=== PATIENT | female | born 1980 | race Caucasian/White ===

== ENCOUNTER → 2020-03-28 15:17 | Outpatient (CLI) | payer OTHER, SELFPAY ==
--- NOTE | ~2020-03-28 | MM_ITS ---
EXAMINATION: MM screening [facility] BI w guillermo HISTORY: Screening mammogram TECHNIQUE: Craniocaudal and mediolateral oblique 3-D tomosynthesis images were obtained and synthetic 2-D images were generated. CAD analysis was submitted and interpreted. COMPARISON: 12/08/2018, 12/17/2017, 12/07/2016 BREAST PARENCHYMAL COMPOSITION: The breasts are heterogeneously dense, which may obscure small masses . FINDINGS: There is no evidence of suspicious mass, calcification, or architectural distortion to sugg est malignancy in either breast. There has been no suspicious interval change. IMPRESSION: 1. No mammographic evidence of malignancy. 2. Recommend routine screening mammography in one year. BI-RADS Category 1: Negative Reviewed, dictated and finalized at location A.
== END ==
PROVIDERS: Visit Provider Nurse Practitioner
DX: Z12.31 Encounter for screening mammogram for malignant neoplasm of breast (principal)
CPT/HCPCS: 77063; 77067

== ENCOUNTER → 2021-03-20 14:20 | Outpatient (CLI) | payer BC, SELFPAY ==
--- NOTE | ~2021-03-20 | MMUS_ITS ---
EXAMINATION: MM diagnostic [facility] BI w guillermo, US breast BI complete HISTORY: Palpable left mass at 12-1:00, left breast tenderness TECHNIQUE: Bilateral full field and right spot ML, MLO and craniocaudal 3-D tomosynthesis images of t he breasts were performed and synthetic 2-D images were generated. CAD analysis was submitted and int erpreted. High resolution complete bilateral breast ultrasound including all 4 quadrants and subareol ar area was performed. COMPARISON: 03/28/2020 bilateral digital screening mammogram 12/08/2018 diagnostic bilateral mammogram and left breast ultrasound 12/17/2017 bilateral digital screening mammogram BREAST PARENCHYMAL COMPOSITION: The breasts are heterogeneously dense, which may obscure small masses . FINDINGS: MAMMOGRAPHIC FINDINGS: The dense fibroglandular stroma prevents exclusion of mass in either breast. Bilateral complete breas t ultrasound examination was performed. No architectural distortion, malignant constipation, skin thickening or retraction of either breast i s detected. ULTRASOUND: Right breast: 9:00 5 cm from nipple: 1.9 x 3.2 x 3.1 mm sonolucency without internal vascularity or posterior shado wing, likely a small cyst Left breast: 2:00 4 cm from nipple: 3.2 x 2.1 x 3.1 mm probable cyst, without internal vascularity or posterior sh adowing 2:00 8 cm from nipple: Circumscribed hypoechoic contiguous 3.4 x 1.9 and 2.4 x 1 mm hypoechoic areas without suspicious shadowing or internal vascularity, likely benign IMPRESSION: 1. No mammographic evidence of malignancy 2. Routine mammographic screening is recommended BI-RADS Category 2: Benign finding(s). Reviewed, dictated and finalized at location A. IMPRESSION: 1. No mammographic evidence of malignancy 2. Routine mammographic screening is recommended BI-RADS Category 2: Benign finding(s).
== END ==
PROVIDERS: Visit Provider Obstetrics & Gynecology Gynecology
DX: N63.20 Unspecified lump in the left breast, unspecified quadrant (principal); N64.59 Other signs and symptoms in breast
CPT/HCPCS: 76641; 77062; 77066; G0279

== ENCOUNTER → 2021-06-12 00:48 | Outpatient (CLI) | payer BC, SELFPAY ==
[2021-06-13 18:18] LABS: SARS-CoV-2 RNA PCR Negative
== END ==
PROVIDERS: PCP Family Medicine; Visit Provider Physician Assistant
DX: R05.9 Cough, unspecified (principal); Z20.822 Contact with and (suspected) exposure to COVID-19
CPT/HCPCS: C9803; U0003; U0005

== ENCOUNTER → 2022-06-07 16:08 | Outpatient (CLI) | payer OTHER, SELFPAY ==
--- NOTE | ~2022-06-07 | MM_ITS ---
EXAMINATION: MM screening [facility] BI w guillermo HISTORY: Screening mammogram TECHNIQUE: Craniocaudal and mediolateral oblique 3-D tomosynthesis images were obtained and synthetic 2-D images were generated. CAD analysis was submitted and interpreted. COMPARISON: 03/20/2021 bilateral diagnostic mammography and bilateral complete breast ultrasound exam ination BREAST PARENCHYMAL COMPOSITION: The breasts are heterogeneously dense, which may obscure small masses . FINDINGS: There is no evidence of suspicious mass, calcification, or architectural distortion to sugg est malignancy in either breast. There has been no suspicious interval change. IMPRESSION: 1. No mammographic evidence of malignancy. 2. Recommend routine screening mammography in one year. BI-RADS Category 1: Negative Reviewed, dictated and finalized at location A. ALIZER
== END ==
PROVIDERS: PCP Nurse Practitioner; Visit Provider Nurse Practitioner
DX: Z12.31 Encounter for screening mammogram for malignant neoplasm of breast (principal)
CPT/HCPCS: 77063; 77067

== ENCOUNTER 2023-01-20 12:34 | Outpatient (CLI) | payer BC, SELFPAY ==
--- NOTE | 2023-02-07 12:47 | WPDHOMESLEEP ---
Sleep Study - Home Unattended Date of Study: 01/20/23 Ordering Provider: Rachael RyanMD Interpreting Provider: Michaelle Scott, DO Home Sleep Study Type: Watch PAT Height: 1.8 m Weight: 95.254 kg Body Mass Index: 29.2 Neck Circumference (inches): 14 [place]: 0 Reason for Sleep Study Fatigue Sleep History The patient is a 42-year-old female with anxiety, hypertension, seasonal allergies and history of tobacco use that had a sleep study ordered for fatigue. The patient denies awakening at night with heartburn, belching or cough. She frequently snores and is occasionally loud enough that others complain. She constantly has trouble sleeping when she has a cold. She denies waking up gasping for air throughout the night. She denies having breathing problems at night observed by herself or others. She frequently sweats excessively at night. She frequently has heart palpitations or irregular heartbeats during the night. She denies falling asleep during the day but never while driving. She denies sleep paralysis and cataplexy. She constantly has trouble at school or work due to sleepiness. She constantly experiences vivid dreamlike scenes upon awakening or falling asleep. She occasionally feels afraid of falling asleep. She constantly has nightmares and frequently remembers her dreams. She constantly has thoughts racing through her mind. She denies feeling sad or depressed. She constantly has anxiety. She frequently has muscular tension. She constantly experiences crawling and aching feelings in her legs and occasionally has leg pain during the night. She denies grinding her teeth during sleep and denies awakening with morning jaw pain. She denies being bothered by pain during the day and denies being awakened by pain during the night. She frequently wakes up feeling stiff in the morning. She occasionally wakes up with sore or achy muscles. She frequently wakes up with pain in the neck, spine or other joints. She goes to bed at 11:00 p.m. on weekdays and between 11:00 p.m. to midnight on the weekends. It takes her 30 minutes up to 2 hours to fall asleep. She wakes up 4-5 times throughout the night for unknown reasons and can take hours for her to fall back asleep. She wakes up at 6:40 a.m. on weekdays but does not have a set wake-up time on the weekends. She is unsure how many hours of sleep she gets per night. She will stay in bed for 30 minutes up to an hour to 5 after waking up in the morning. She currently lives with her and 2 children. She denies consuming any caffeinated beverages within 2 hours of bedtime. She denies engaging in physical exercise before bedtime. She will report for falling asleep. She denies taking naps in the afternoon or the evening. She consumes 2 cups of coffee per day. She is a former cigarette smoker. She will consume alcohol on the weekends socially. She denies recreational drug use. [facility] Family History Family History Father Hypertension Social History Social History Smoking status: Never smoker Smoking end date: 05/30/06 Alcohol intake: current Alcohol use details: social Substance use: never Living arrangements: with family Occupation/Education: occupation Gender identity (if verbalized by the patient): Female Medications Home Medications Medication Instructions Recorded Confirmed Type fluoxetine 40 mg capsule 40 mg PO DAILY #30 caps 05/15/21 05/15/21 Rx methylprednisolone 4 mg tablets in See Rx Instructions PO PER PKG DIR 06/05/21 Rx a dose pack (Medrol (Freeman)) #21 ea Sleep Procedure The sleep study was completed using AdvaxisT a technically adequate device with seven channels: peripheral arterial tone, actigraphy, body position, snore, respiratory movement, pulse oximetry, sleep staging, and heart rate. Prior to using the
[2023-02-07 12:48] VITALS: BMI 29.2
== END 2023-01-21 12:55 | disposition home or self-care (01) ==
PROVIDERS: PCP Nurse Practitioner; Visit Provider Internal Medicine
DX: G47.30 Sleep apnea, unspecified (principal); R06.83 Snoring
CPT/HCPCS: 95800

== ENCOUNTER → 2023-04-08 14:03 | Outpatient (CLI) | payer BC, SELFPAY ==
--- NOTE | ~2023-04-08 | US_ITS ---
EXAMINATION: US transvaginal DATE: 04/08/2023 14:30 INDICATION: Excessive and frequent menstruation with regular cycles. TECHNIQUE: Multiple transvaginal sonographic images of the pelvis were obtained. COMPARISON: None. FINDINGS: The uterus measures 9.7 x 5.4 x 7.1 cm. There is no free fluid in the pelvis. The endometrial complex measures 13 mm in thickness. There is an intrauterine device, 8 mm from the fundal edge of the endom etrial complex. The right ovary measures 3.1 x 2.3 x 3.7 cm. The left ovary measures 2.8 x 2.6 x 3.8 cm. There is normal vascular flow in the ovaries. IMPRESSION: 1. Intrauterine device in slightly low position. Reviewed, dictated and finalized at location E. NCIAL SALES ADVISOR
== END ==
PROVIDERS: PCP Internal Medicine; Visit Provider Nurse Practitioner
DX: N92.0 Excessive and frequent menstruation with regular cycle (principal); Z97.5 Presence of (intrauterine) contraceptive device
CPT/HCPCS: 76830

== ENCOUNTER → 2023-07-15 14:16 | Outpatient (CLI) | payer BC, SELFPAY ==
--- NOTE | ~2023-07-15 | MM_ITS ---
EXAMINATION: MM screening [facility] BI w guillermo HISTORY: Screening mammogram TECHNIQUE: Craniocaudal and mediolateral oblique 3-D tomosynthesis images were obtained and synthetic 2-D images were generated. CAD analysis was submitted and interpreted. COMPARISON: 06/07/2022, 03/20/2021, 03/28/2020 BREAST PARENCHYMAL COMPOSITION: The breasts are heterogeneously dense, which may obscure small masses . FINDINGS: No suspicious mass, calcification, or architectural distortion are identified in either jessika ast to suggest malignancy. There has been no suspicious interval change. IMPRESSION: 1. No mammographic evidence of malignancy. 2. Recommend routine screening mammography in one year. BI-RADS Category 1: Negative Reviewed, dictated and finalized at location A. COVERER
== END ==
PROVIDERS: PCP Nurse Practitioner; Visit Provider Nurse Practitioner
DX: Z12.31 Encounter for screening mammogram for malignant neoplasm of breast (principal)
CPT/HCPCS: 77063; 77067

== ENCOUNTER 2024-06-22 17:31 | Emergency (ER) | payer BC, SELFPAY ==
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
[2024-06-22 17:39] VITALS: BP 124/79; PULSE 93; RESP 16; TEMP 36.4; O2SAT 100
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
== END 2024-06-22 18:39 | disposition home or self-care (01) ==
PROVIDERS: Emergency Provider Nurse Practitioner; PCP Internal Medicine
DX: S22.42XA Multiple fractures of ribs, left side, initial encounter for closed fracture (principal); S29.012A Strain of muscle and tendon of back wall of thorax, initial encounter; V89.2XXA Person injured in unspecified motor-vehicle accident, traffic, initial encounter; W22.10XA Striking against or struck by unspecified automobile airbag, initial encounter; Z87.891 Personal history of nicotine dependence
CPT/HCPCS: 71100; 73010; 99213; G0463

== ENCOUNTER 2024-11-17 09:50 | Outpatient (CLI) | payer BC, SELFPAY ==
--- NOTE | ~2024-11-17 | MM_ITS ---
EXAMINATION: MM screening [facility] BI w guillermo HISTORY: Screening mammogram TECHNIQUE: Craniocaudal and mediolateral oblique 3-D tomosynthesis images were obtained and synthetic 2-D images were generated. CAD analysis was submitted and interpreted. COMPARISON: 07/15/2023, 06/07/2022, 03/20/2021 BREAST PARENCHYMAL COMPOSITION:Dense: The breasts are extremely dense, which lowers the sensitivity o f mammography. FINDINGS: No suspicious mass, calcification, or architectural distortion are identified in either jessika ast to suggest malignancy. There has been no suspicious interval change. IMPRESSION: No mammographic evidence of malignancy. Recommend routine screening mammography in one year. BI-RADS Category 1: Negative Reviewed, dictated and finalized at location .
== END 2024-11-17 09:51 | disposition home or self-care (01) ==
LOC: MICIMG 09:51
PROVIDERS: PCP Internal Medicine; Visit Provider Obstetrics & Gynecology Gynecology
DX: Z12.31 Encounter for screening mammogram for malignant neoplasm of breast (principal)
CPT/HCPCS: 77063; 77067